=== PATIENT | female | born 1980 | race Caucasian/White ===

== ENCOUNTER 2023-09-04 10:33 | Outpatient (CLI) | payer OTHER, SELFPAY ==
--- NOTE | ~2023-09-04 | XR_ITS ---
[id number]_CR DATE: 09/04/2023 11:01 INDICATION: Radiating pain TECHNIQUE: Standing AP, lateral and open-mouth views COMPARISON: 11/21/2015 cervical spine FINDINGS: There is straightening of cervical spine which may be due to muscle spasm. C1 and C2 are normally aligned and the odontoid process is intact. No fracture or dislocation or lock ed facet or prevertebral soft tissue swelling. There is moderately severe degenerative disc disease with anterior posterior spurring at C6-7. Remain ing cervical interspaces are well preserved. IMPRESSION: Moderately severe degenerative disease at C6-7 Straightening of the cervical spine Reviewed, dictated and finalized at [facility]. Reviewed, dictated and finalized at [facility]. [employer]
== END 2023-09-04 10:34 ==
LOC: MICIMG 10:39
PROVIDERS: PCP Chiropractor; Visit Provider Chiropractor
DX: M43.8X2 Other specified deforming dorsopathies, cervical region (principal); M47.812 Spondylosis without myelopathy or radiculopathy, cervical region
CPT/HCPCS: 72040